=== PATIENT | female | born 1945 | race Caucasian/White ===

== ENCOUNTER 2017-06-13 10:10 | Inpatient (IN) | payer MEDICARE, BC ==
[2017-06-13] MEDS ORDERED: Lorazepam 2 MG/ML VIAL ONE (11:46)
[2017-06-13] MEDS ORDERED: Ondansetron HCl/PF 4 MG/2 ML Vial ONE (11:47)
[2017-06-13] MEDS ORDERED: Meclizine HCl 25 MG TAB ONE (11:47)
[2017-06-13 12:03] LABS: #Eosinphils 0.3 thou/uL (0.0-0.7); #Lymphocytes 1.2 thou/uL (1.20-3.40); #Monocytes 0.7 thou/uL (0.11-0.59); #Neutrophils 7.2 thou/uL (1.40-6.50); %Basophils 0.3 % (0.0-1.0); %Lymphocytes 12.5 % (21.0-51.0); %Monocytes 6.9 % (0.0-10.0); Hematocrit 37.3 % (36.0-47.0); Mean Platelet Volume 8.1 fL (7.4-10.4); Red Blood Cell (RBC) Count 3.96 mill/uL (4.20-5.40); White Blood Cell (WBC) Count 9.3 thou/uL (4.8-10.8)
--- NOTE | 2017-06-13 12:05 | RAD ---
CHEST 1 VIEW: Date: 06/13/17 HISTORY: Syncope. Fall. COMPARISON: Chest radiograph from 2016. FINDINGS: Lungs are clear with no pneumothorax or effusion. Cardiac silhouette and mediastinal contours within normal limits. There appears to be plate and screw fixation in posterior left ribs. Stent graft noted over the upper abdomen. IMPRESSION: 1. No acute intrathoracic abnormality. 2. Likely either small effusion or scarring left lateral costophrenic sulcus. POS: MEDHAT
--- NOTE | 2017-06-13 12:17 | CT ---
CT BRAIN WITHOUT CONTRAST: Date: 06/13/17 HISTORY: Trauma. COMPARISON: None available. FINDINGS: No acute territorial infarct or hemorrhage. No midline shift or mass effect. There is a right forehea d superficial soft tissue contusion. Old lacunar infarcts in basal ganglia. Moderate microvascular is chemic changes. The calvarium is intact. Paranasal sinuses and mastoids are clear. IMPRESSION: 1. Right forehead superficial soft tissue contusion without acute post-traumatic intracranial sequel ae. 2. Moderate microvascular ischemic changes. POS: VIKKI
[2017-06-13 12:18] LABS: PTT 31.1 SEC (22.9-36.1); Prothrombin Time 14.9 SEC (12.0-14.7)
--- NOTE | 2017-06-13 12:19 | CT ---
CT CERVICAL SPINE NONCONTRAST: HISTORY: 71-year-old female status post acute cervical trauma from fall. FINDINGS: There are no jumped or perched facets. There is no evidence of acute fracture. The vertebral body h eights are maintained. There is no prevertebral soft tissue swelling. High-grade COPD changes at zoila g apices. Severe bilateral facet DJD at upper and mid C-spine. Incompletely visualized aneurysm of aortic arch. Pacemaker, left. IMPRESSION: 1. No evidence of acute fracture or acute traumatic subluxation. 2. Emphysema. 3. Severe bilateral degenerative facet disease in the upper and mid levels of the cervical spine. 4. Aneurysm of aortic arch. 5. Left subclavian pacemaker. suzanna [] POS: RUSTAM
[2017-06-13 12:24] LABS: ALT (SGPT) 10 U/L (8-55); AST (SGOT) 18 U/L (5-34); Alkaline Phosphatase 79 U/L (40-150); Anion Gap 12 mmol/L (10-20); BUN (Urea Nitrogen) 27 mg/dL (9.8-20.1); Bilirubin, Total 0.6 mg/dL (0.2-1.2); CK (CPK) 71 U/L (29-168); Calc. Creatinine Clearance 0 mL/min (70-130); Calcium 9.5 mg/dL (7.8-10.44); Carbon Dioxide 23 mmol/L (23-31); Chloride 107 mmol/L (98-107); Estimated GFR-MDRD 25; Globulin 3.3 g/dL (2.4-3.5); Lipase 24 U/L (8-78); Protein, Total 7.2 g/dL (6.0-8.3)
[2017-06-13 12:29] LABS: Troponin I 0.019 ng/mL (< 0.028)
--- NOTE | 2017-06-13 16:17 | HP ---
HISTORY OF PRESENT ILLNESS: Ms. Haile is a 71-year-old woman. She came into this facility after she fell earlier today. She claims that she suddenly felt dizzy and fell. She sustained some right-sided facial hematoma. She was evaluated. She is currently being admitted for management and further evaluation. She denies any previous similar episodes of dizziness. She is known to have any history of hypertension, COPD, atrial fibrillation. She had previous pacema ker placement. She denies diabetes. She does also have any history of chronic kidney disease; howev , we do not know her baseline kidney function. PAST SURGICAL HISTORY: Remarkable for thoracic abdominal aortic aneurysm repair, cholecystectomy, hy sterectomy, bilateral cataract extraction, left mastectomy. ALLERGIES: She does not have any known allergies. SOCIAL HISTORY: She is a former smoker. She denies ETOH abuse. Denies drug abuse. FAMILY HISTORY: Reviewed and is not contributory. MEDICATIONS: Prior to admission she was on Xanax, amlodipine, Eliquis, aspirin 81 mg daily, Lipitor, Keflex, vitamin D3, vitamin B12, Lasix, gabapentin, hydrocodone, levothyroxine, potassium chloride, and Effexor. REVIEW OF SYSTEMS: Constitutional: Denies any fever, denies any weakness. HEENT: No headache, no ocular pain, no sore throat, no rhinorrhea, no earache, no epistaxis. Neck: No neck pain, no neck s tiffness. Cardiovascular: Some shortness of breath associated with chronic obstructive pulmonary di sease, chronic. No chest pain. Pulmonary: No coughing. Gastrointestinal: She did have severe keli rrhea yesterday, no vomiting, no abdominal pain. Endocrinology: No heat or cold intolerance. No po lyuria, polydipsia or polyphagia. Musculoskeletal: Admits to arthralgias. Hematology: No abnormal bleeding. Lymphatic: No palpable lymphadenopathy, no painful lymphadenopathy. Skin: No rash. No itching. Allergies: No hayfever. Psychiatric: Admits to depression. Neurologic: No seizure. G enitourinary: No dysuria, no hematuria. PHYSICAL EXAMINATION: GENERAL: At the current time, she is alert, responsive, cooperative, in no acute distress. VITAL SIGNS: Her latest vital signs show a temperature of 97.9, pulse rate 71, respiratory rate 16, blood pressure 171/90. HEENT: Her head is normocephalic and atraumatic. Both pupils are equal, reactive. Ears and nose ar e normal. She has a small hematoma in the right side of her forehead. Oral mucosa is moist. Pharyn geal area is clear. NECK: Supple. There is no distention of jugular vein. No lymphadenopathy felt. Thyroid gland not palpable. There is no carotid bruit. CHEST: Symmetrical with regular S1, S2. LUNGS: Clear. ABDOMEN: Soft. Bowel sounds are heard. We could not appreciate any organomegaly. There is no foca l area of tenderness. EXTREMITIES: Limbs showed no edema. NEUROLOGIC: She moves all extremities. LABORATORY DATA: Her CBC done today showed WBC of 9.3, hemoglobin of 12.3, hematocrit of 37.3, MCV o f 94.3, platelet of 152. PT is 14.9, PTT 31.1. Chemistry and electrolytes show sodium of 137, potas sium 4.6, chloride 107, CO2 of 23, BUN 27, creatinine 1.98, glucose 93, calcium 9.5, total bilirubin 0.6, AST 18, ALT 10, alkaline phosphatase 79, ammonia 19, CPK 73, total protein 7.2, albumin 3.9, lidia bulin 3.3, lipase is 24. Head CT was reported to show a right forehead superficial soft tissue contu rylie without intracranial sequela and there are moderate microvascular ischemic changes. Cervical sp ine CT was reported to show no evidence of fracture. There is aneurysm of the aortic arch, left subc lavian pacemaker. Chest x-ray was reported to show no acute intrathoracic abnormality. Lungs are cl ear. Cardiac silhouette and mediastinal contour normal. ASSESSMENT AND PLAN: This is a 71-year-old woman with history of hypertension, chronic obs tructive pulmonary disease, atrial fibrillation, status post thoracic aortic aneurysm repair, who was admitted with vertigo. Head CT is negative. We will check MRI and MRA of the brain and neck. By t he meantime, we will initiate treatment of her vertigo. She will be admitted to the stroke floor. F nydia evaluation and management will depend on the course of her hospitalization and her response to therapy.
[2017-06-13] MEDS ORDERED: Lorazepam 2 MG/ML VIAL SLOW IVP PRN (16:32)
[2017-06-13] MEDS ORDERED: Ondansetron HCl/PF 4 MG/2 ML Vial IVP PRN (16:32)
[2017-06-13 16:55] VITALS: BMI 21.4
[2017-06-13] MEDS: Sodium Chloride 0.9% 1,000 ML IV SCH (17:43)
[2017-06-14] MEDS: Sodium Chloride 0.9% 1,000 ML IV SCH ×2 (05:16→20:54)
[2017-06-14] MEDS: Acetaminophen 325 MG TAB PO PRN ×2 (06:06→20:49)
--- NOTE | 2017-06-14 11:30 | PDOC.PN ---
- Subjective Encounter Start Date: 06/14/17 Encounter Start Time: 10:30 Still ginger...worse when upright. - Objective MAR Reviewed: Yes Vital Signs & Weight: Vital Signs (12 hours) Temp Pulse Resp BP BP BP BP 06/14/17 11:24 159/83 H 141/78 H 143/81 H 06/14/17 07:56 98.2 F 71 18 06/14/17 07:35 98.2 F 71 18 138/79 06/14/17 04:29 99.1 F 72 14 175/86 H Pulse Ox 06/14/17 11:24 06/14/17 07:56 06/14/17 07:35 96 06/14/17 04:29 97 Weight Weight 136 lb 9.6 oz I&O: 06/13/17 06/14/17 06/15/17 06:59 06:59 06:59 Intake Total 1076 240 Output Total 0 Balance 1076 240 Result Diagrams: 06/13/17 11:49 06/13/17 11:49 Radiology Reviewed by me: Yes Phys Exam - Physical Examination Constitutional: NAD HEENT: sclera anicteric (+Raccoon eyes....) Neck: no JVD Respiratory: clear to auscultation bilateral Cardiovascular: RRR Gastrointestinal: soft Musculoskeletal: no edema Neurological: moves all 4 limbs Psychiatric: A&O x 3 Dx/Plan (1) Vertigo Code(s): R42 - DIZZINESS AND GIDDINESS Status: Acute Plan: Continue current therapy. Consult neurology when available. Comment: Head CT reviewed. MRI cannot be done, due to pacemaker. (2) COPD (chronic obstructive pulmonary disease) Status: Acute Comment: stable. (3) Atrial fibrillation Code(s): I48.91 - UNSPECIFIED ATRIAL FIBRILLATION Status: Acute (4) S/P placement of cardiac pacemaker Code(s): Z95.0 - PRESENCE OF CARDIAC PACEMAKER Status: Acute (5) HTN (hypertension) Code(s): I10 - ESSENTIAL (PRIMARY) HYPERTENSION Status: Acute Comment: No orthostatic changes... - Plan -: Continue current therapy. -: Hold Eliquis. -: Neuro consult when available.. * .
[2017-06-14] MEDS: Meclizine HCl 25 MG TAB PO PRN (12:35)
[2017-06-14] MEDS: Ferrous Sulfate 325 MG TAB PO SCH (20:50)
[2017-06-14] MEDS ORDERED: Atorvastatin Calcium 10 MG TAB PO SCH (21:00)
[2017-06-15] MEDS ORDERED: Levothyroxine Sodium 100 MCG TAB PO SCH (06:00)
[2017-06-15] MEDS ORDERED: Cyanocobalamin (Vitamin B-12) 1,000 MCG TAB PO SCH (09:00)
[2017-06-15] MEDS ORDERED: Amlodipine 5 MG TAB PO SCH (09:00)
[2017-06-15] MEDS: Ferrous Sulfate 325 MG TAB PO SCH (09:35)
[2017-06-15] MEDS: Meclizine HCl 25 MG TAB PO PRN (09:35)
--- NOTE | 2017-06-15 11:34 | PDOC.PN ---
- Subjective Encounter Start Date: 06/15/17 Encounter Start Time: 11:10 Expresses no complaint. Feels much better. - Objective Vital Signs & Weight: Vital Signs (12 hours) Temp Pulse Resp BP BP Pulse Ox 06/15/17 09:33 70 173/83 H 06/15/17 08:00 98.4 F 70 18 93 L 06/15/17 07:50 98.4 F 70 18 173/83 H 93 L 06/15/17 04:40 98.6 F 73 16 168/80 H 96 06/15/17 00:25 98.3 F 70 16 134/87 93 L Weight Weight 141 lb 8 oz I&O: 06/14/17 06/15/17 06/16/17 06:59 06:59 06:59 Intake Total 1220 Output Total 300 Balance 920 Result Diagrams: 06/13/17 11:49 06/13/17 11:49 Phys Exam - Physical Examination Constitutional: NAD HEENT: moist MMs (Periorbital ecchymosis, severe, bilateral.) Neck: no JVD Respiratory: clear to auscultation bilateral Cardiovascular: RRR Gastrointestinal: soft Musculoskeletal: no edema Neurological: moves all 4 limbs Psychiatric: A&O x 3 Dx/Plan (1) Vertigo Code(s): R42 - DIZZINESS AND GIDDINESS Status: Acute Comment: Head CT reviewed. MRI cannot be done, due to pacemaker. (2) COPD (chronic obstructive pulmonary disease) Status: Acute Comment: stable. (3) Atrial fibrillation Code(s): I48.91 - UNSPECIFIED ATRIAL FIBRILLATION Status: Acute (4) S/P placement of cardiac pacemaker Code(s): Z95.0 - PRESENCE OF CARDIAC PACEMAKER Status: Acute (5) HTN (hypertension) Code(s): I10 - ESSENTIAL (PRIMARY) HYPERTENSION Status: Acute Comment: No orthostatic changes... - Plan -: Stable. -: Home today. -: To see PCP tomorrow. -: Resume Eliquis tomorrow. * .
[2017-06-15] MEDS: Sodium Chloride 0.9% 1,000 ML IV SCH (11:50)
[2017-06-15 12:07] VITALS: BP 172/83; TEMP 99.1
--- NOTE | 2017-06-15 12:38 | DIS ---
DATE OF ADMISSION: 06/13/2017 DATE OF DISCHARGE: 06/15/2017 PRIMARY DIAGNOSTIC: Vertigo. SECONDARY DIAGNOSTIC: Atrial fibrillation, chronic obstructive pulmonary disease, hypertension, hist ory of thoracic aortic aneurysm with discharge diagnostic as above and also severe periorbital ecchym osis. DUST COLLECTOR: None. PROCEDURE: Head CT, chest x-ray, C-spine CT. COURSE OF HOSPITALIZATION: Uncomplicated. Responded well to management. The patient is clinically stable at this time being discharged to home. DISCHARGE MEDICATIONS: Please see discharge medication reconciliation sheet. The patient is to foll ow up with her primary care physician this coming week to resume her Eliquis. For discharge medicati on reconciliation sheet for 2 days. PHYSICAL EXAMINATION: Please refer to the patient's medical record progress note section. DISCHARGE TIME: 32 minutes.
--- NOTE | 2017-07-07 13:53 | EKG ---
Test Reason : Blood Pressure : / mmHG Vent. Rate : 070 BPM Atrial Rate : 258 BPM P-R Int : 000 ms QRS Dur : 154 ms QT Int : 478 ms P-R-T Axes : 093 139 012 degrees QTc Int : 516 ms Electronic ventricular pacemaker Confirmed by KAITY BROUSSARD MD ([id number]), newspaper editor managing ROLDAN OSPINA ([id number]) on 07/07/2017 1:52:27 PM Referred By: Confirmed By:KAITY BROUSSARD MD
== END 2017-06-15 13:23 | disposition home or self-care (01) | DRG 149 ==
LOC: ERS 10:10 → 2SE 13:48 → OBSVTOIN 06-14 14:47
PROVIDERS: ADMIT Hospitalist; ATTEND Hospitalist
DX: R42 Dizziness and giddiness (principal); I71.2 Thoracic aortic aneurysm, without rupture; Z99.81 Dependence on supplemental oxygen; I48.2 Chronic atrial fibrillation; S00.83XA Contusion of other part of head, initial encounter; J44.9 Chronic obstructive pulmonary disease, unspecified; I10 Essential (primary) hypertension; W18.30XA Fall on same level, unspecified, initial encounter; Z79.01 Long term (current) use of anticoagulants; Z90.12 Acquired absence of left breast and nipple; Z87.891 Personal history of nicotine dependence; Z79.82 Long term (current) use of aspirin; Z95.0 Presence of cardiac pacemaker; Y92.012 Bathroom of single-family (private) house as the place of occurrence of the external cause; E03.9 Hypothyroidism, unspecified; F41.9 Anxiety disorder, unspecified
CPT/HCPCS: 36415; 70450; 71010; 72125; 80053; 82140; 82550; 82553; 83690; 83880; 84484; 85025; 85610; 85730; 93005; 96361; 96374; 96375; J2060; J2405

== ENCOUNTER 2017-12-24 12:02 | Outpatient (CLI) | payer MEDICARE, BC | END 2017-12-24 12:03 | disposition home or self-care (01) | LOC: BICCT 12:02 | PROVIDERS: ATTEND Thoracic Surgery (Cardiothoracic Vascular Surgery) | DX: I71.2 Thoracic aortic aneurysm, without rupture (principal); I71.4 Abdominal aortic aneurysm, without rupture; N63.20 Unspecified lump in the left breast, unspecified quadrant; I77.819 Aortic ectasia, unspecified site; I13.10 Hypertensive heart and chronic kidney disease without heart failure, with stage 1 through stage 4 chronic kidney disease, or unspecified chronic kidney disease; N18.9 Chronic kidney disease, unspecified; N17.9 Acute kidney failure, unspecified; D63.1 Anemia in chronic kidney disease; I73.9 Peripheral vascular disease, unspecified; E78.5 Hyperlipidemia, unspecified; E03.9 Hypothyroidism, unspecified; J44.9 Chronic obstructive pulmonary disease, unspecified; Z90.49 Acquired absence of other specified parts of digestive tract | CPT/HCPCS: 71250; 74177; 82565 ==

== ENCOUNTER 2018-12-14 12:35 | Outpatient (CLI) | payer MEDICARE, BC ==
--- NOTE | 2018-12-14 15:07 | CT ---
CT OF THE CHEST, ABDOMEN AND PELVIS WITHOUT IV CONTRAST INDICATION: Abdominal aortic aneurysm and thoracic aortic aneurysm; history of left-sided breast canc er, history of hysterectomy, cholecystectomy, appendectomy and thoracic and abdominal arterial stents. COMPARISON: CT of the thorax without contrast dated July 21, 2018. Comparisons are also made with a CTA of the chest, abdomen and pelvis dated September 02, 2016. FINDINGS: CHEST: Lungs:There is moderate COPD change. Previously seen left lower lobe pulmonary nodule has resolved. R esidual subsegmental atelectasis within the left lower lobe persists. Heart and great vessels:The aneurysmal dilatation involving the distal thoracic aortic arch is stable measuring 4.7 cm in its greatest axial dimension on image 22 of series 2. The descending thoracic aortic aneurysm is stably enlarged measuring 4 cm at the level of the right main pulmonary artery. Th e distal thoracic aortic aneurysm repair appears unchanged from the most recent comparison July 21, 2018. Surgical anastomosis of the celiac, SMA and renal arteries appear similar appearing. Pleural space: No pneumothorax or effusion. Additional findings: Multilead pacemaker overlying the left chest wall is stable. The post procedura l and post therapy changes involving the left breast are stable. ABDOMEN: Liver:The unopacified liver is unremarkable appearing. The gallbladder is surgically absent. Spleen:Normal appearing. Pancreas:Normal appearing. Adrenal Glands:Normal appearing. Kidneys:There is a 2.2 cm cyst involving the anterior aspect of the left mid kidney that is stable. T here is renal cortical thinning bilaterally. Aorta:There is postprocedural change of an aortobiiliac endograft stent. There are internal revision endograft stents seen involving the common iliac limbs bilaterally. The excluded infrarenal abdominal aortic aneurysmal sac is slightly larger than on the comparison CTA dated September 02, 2016 , where previously it measured 4.2 cm now measures 4.7 cm on image 75 of series 2. 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 Additional findings: No free fluid or free air. Pelvis: Bowel:Normal appearing. Bladder:Normal appearing. Reproductive structures:Surgically absent Rectum and perirectal soft tissues:Normal appearing. Additional findings: No free fluid or free air. Osseous structures: There is diffuse osteopenia. There is scattered degenerative and osteoarthritic change present. IMPRESSION: 1. Resolution of previously seen left lower lobe pulmonary nodule likely reflecting a focus of rounde d atelectasis. 2. Worsening aneurysmal dilatation of the excluded infrarenal abdominal aortic aneurysmal sac. Compon ent of endoleak cannot be entirely excluded. Recommend consideration for follow-up CTA of the abdomen and pelvis for additional characterization. 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 3. Aneurysmal dilatation of the distal thoracic aortic arch is stable. Aneurysmal dilatation of the d escending thoracic aorta is stable. The surgical change involving the distal thoracic aortic aneurysm repair appears unchanged. 4. Stable bilateral renal cortical thinning and left renal cysts. 5. COPD change
== END 2018-12-14 12:36 | disposition home or self-care (01) ==
LOC: CT 12:35
PROVIDERS: ATTEND Thoracic Surgery (Cardiothoracic Vascular Surgery)
DX: I71.4 Abdominal aortic aneurysm, without rupture (principal); I70.203 Unspecified atherosclerosis of native arteries of extremities, bilateral legs; I71.2 Thoracic aortic aneurysm, without rupture; I72.3 Aneurysm of iliac artery; N28.89 Other specified disorders of kidney and ureter; N28.1 Cyst of kidney, acquired; J44.9 Chronic obstructive pulmonary disease, unspecified
CPT/HCPCS: 71250; 74177; 82565

== ENCOUNTER 2019-06-20 16:39 | Inpatient (IN) | payer MEDICARE, BC ==
[2019-06-20] MEDS ORDERED: methylPREDNISolone Sod Succ/PF 125 MG/2 ML VIAL ONE (17:31)
[2019-06-20 17:38] LABS: #Basophils 0.1 thou/uL (0.0-0.2); #Eosinphils 0.2 thou/uL (0.0-0.7); #Lymphocytes 1.4 thou/uL (1.20-3.40); #Monocytes 1.1 thou/uL (0.11-0.59); #Neutrophils 12.1 thou/uL (1.40-6.50); %Basophils 0.5 % (0.0-1.0); %Eosinophils 1.6 % (0.0-10.0); %Lymphocytes 9.1 % (21.0-51.0); %Monocytes 7.5 % (0.0-10.0); %Neutrophils 81.3 % (42.0-75.0); Hemoglobin 9.8 g/dL (12.0-16.0); Mean Corpuscular HGB CONC 33.7 g/dL (32.0-36.0); Mean Corpuscular Hemoglobin 32.7 pg (27.0-31.0); Mean Corpuscular Volume 97.2 fL (78.0-98.0); Mean Platelet Volume 8.6 fL (7.4-10.4); Platelet Count 223 thou/uL (130-400); RBC Distribution Width 13.6 % (11.5-14.5); White Blood Cell (WBC) Count 14.8 thou/uL (4.8-10.8)
[2019-06-20 17:40] LABS: Albumin 3.8 g/dL (3.4-4.8); Anion Gap 14 mmol/L (10-20); BUN (Urea Nitrogen) 32 mg/dL (9.8-20.1); Bilirubin, Total 0.5 mg/dL (0.2-1.2); Calc. Creatinine Clearance 0 mL/min (70-130); Calcium 9.9 mg/dL (7.8-10.44); Carbon Dioxide 27 mmol/L (23-31); Chloride 101 mmol/L (98-107); Estimated GFR-MDRD 22; Glucose 112 mg/dL (83-110); Potassium 4.9 mmol/L (3.5-5.1); Protein, Total 7.6 g/dL (6.0-8.3); Sodium 137 mmol/L (136-145)
[2019-06-20 17:41] LABS: ALT (SGPT) 24 U/L (8-55); AST (SGOT) 16 U/L (5-34); Alkaline Phosphatase 76 U/L (40-110); Globulin 3.8 g/dL (2.4-3.5)
[2019-06-20] MEDS ORDERED: cefTRIAXone\\ROCEPHIN 2 GM VIAL ONE (17:48)
[2019-06-20] MEDS ORDERED: Azithromycin 500 MG VIAL ONE (17:49)
--- NOTE | 2019-06-20 17:51 | RAD ---
Chest one view HISTORY: Dyspnea. COMPARISON: 06/13/2017. FINDINGS: Left cardiac margin partially obscured by ill-defined infiltrate within the lingula. Airspa ce opacification also present within each lower lobe, left greater than right. Some component of atelectasis of the left lower lobe. No evidence of pneumothorax. Multi lead left subclavian cardiac electronic device is in place. IMPRESSION: Infiltrates within each lower lobe and the left upper lobe lingula. Consider multifocal p neumonitis. Cause otherwise not evident.
[2019-06-20 18:02] LABS: CKMB 3.9 ng/mL (0-6.6)
[2019-06-20] MEDS ORDERED: Aspirin 81 mg Enteric Coated Tablet ONE (18:30)
[2019-06-20] MEDS ORDERED: Aspirin Chewable 81 MG TAB ONE (18:33)
[2019-06-20] MEDS ORDERED: Polyethylene Glycol 3350 17 GM Packet PO PRN (18:55)
[2019-06-20] MEDS ORDERED: Polyethylene Glycol 3350 17 GM Packet PO SCH (19:00)
[2019-06-20] MEDS ORDERED: Acetaminophen 325 MG TAB PO PRN (19:10)
[2019-06-20] MEDS ORDERED: Acetaminophen 650 MG Suppository PR PRN (19:10)
[2019-06-20 19:15] LABS: Bacteria/HPF None Seen HPF (None Seen); Bilirubin Negative (Negative); Blood, Urine Trace (Negative); Clarity Clear (Clear); Glucose, Urine (Dipstick) 50 mg/dL (Negative); Leukocyte Negative Leu/uL (Negative); Nitrite Negative (Negative); Protein, Urine (Dipstick) 200 mg/dL (Neg-Trace); RBC/HPF 0-3 HPF (0-3); Squamous Epithelial 0-3 HPF (0-3); Urobilinogen Normal mg/dL (Less than 2)
--- NOTE | 2019-06-20 19:53 | PDOC.HHP ---
Hospitalist HPI - History of Present Illness SOB History of Present Illness: Ms. Haile is a pleasant 73 year old woman who presents with worsening shortness of breath that has been significantly worse in the last 2 days. She was seen by her PCP on and was prescribed Augmentin for COPD exacerbation. She has not been on steroids and has been using nebs at home. She is on humidified air at home at night and has been using throughout the day for the last 2 days. Reports a cough, nonproductive, and without hemoptysis. She denies chest pain but feels epigastric discomfort. Has had increasing abdominal bloating for the last week. Reports she suffers from IBS. She had a very small stool this morning and it was firm. Denies any blood in her stools. Has had a normal appetite and denies any n/v. Has had flatus. She does not follow with a [employer]age [employer] Invest[employer]. Per daughters she appears worse this time than she ever has in the past when presenting with COPD exacerbation. ED Course: In the ED she had labs done that showed a WCC of 14.8, Hgb of 9.8, Hematocrit of 29.1, MCV 97.2, Neutrophils of 81.3% Na+ 137, K+ 4.9, BUN 32, Creat 2.15, GFR 22 (renal function at baseline). Glucose 112, LFTS normal. Trop 0.061, CKMB 3.9 CXR done showed infiltrates within each lower lobe, multifocal pneumonitis per report. She was given Solumedrol 125 mg IV, and duonebs x 3. Started on IV Abx (Rocephin and Azithromycin). Also given 1L NS IV. Also given aspirin 324 mg due to the indeterminate troponin. Hospitalist ROS - Review of Systems Constitutional: reports: weakness, malaise Eyes: denies: pain, vision change, conjunctivae inflammation, eyelid inflammation, redness, other ENT: denies: ear pain, ear discharge, nose pain, nose discharge, nose congestion , mouth pain, mouth swelling, throat pain, throat swelling, other Respiratory: reports: cough, shortness of breath Cardiovascular: denies: chest pain, palpitations, orthopnea, paroxysmal noc. dyspnea, edema, light headedness, other Gastrointestinal: reports: abdominal pain, constipation, other (abdominal bloating) Genitourinary: reports: frequency. denies: dysuria, incontinence, hematuria, retention, other Musculoskeletal: denies: neck pain, shoulder pain, arm pain, back pain, hand pain, leg pain, foot pain, other Skin: denies: rash, lesions, júnior, bruising, other Neurological: denies: weakness, numbness, incoordination, change in speech, confusion, seizures, other - Medication Medications: Active Medications Generic Name Dose Route Start Last Admin Trade Name Freq PRN Reason Stop Dose Admin Albuterol/Ipratropium 3 ml 06/20/19 19:00 06/20/19 19:29 Duoneb NEB 3 ml [id number] [facility] Administration Hospitalist History - Past Medical History Cardiac: reports: AFIB, HTN Pulmonary: reports: COPD Endocrine: reports: Hypothyroidism - Past Surgical History Past Surgical History: reports: Appendectomy, Cataract Removal, Hysterectomy, Tubal Ligation, Tonsillectomy Other Surgical History: Aortic stent Cardiac ablation x 3 for afib - Family History Family History: reports: no pertinent history - Social History Smoking Status: Current every day smoker Alcohol: reports: None Drugs: reports: none Living Situation: Alone - Exam General Appearance: ill appearing (Visibly working to breath and short of breath when speaking) Eye: PERRL, anicteric sclera ENT: normocephalic atraumatic, no oropharyngeal lesions, dry oral mucosa Neck: supple, no lymphadenopathy Heart: RRR, normal peripheral pulses Respiratory: CTAB, no rales, tachypneic Respiratory - other findings: increased work of breathing, sats 90% on 2L Gastrointestinal: soft, no guarding Gastrointestinal - other findings: mild discomfort with palpation, slight bloating Extremities: no edema Skin: no lesions, no rashes Neurological: cranial nerve grossly intact, no focal deficits Musculoskeletal: normal tone Psychiatric: A&O x 3 Hospitalist Results - Labs Result Diagrams: 06/20/19 17:00 06/20/19 17:00 Lab results: WBC 14.8 thou/uL (4.8-10.8) H 06/20/19 17:00 Hgb 9.8 g/dL (12.0-16.0) L 06/20/19 17:00 Hct 29.1 % (36.0-47.0) L 06/20/19 17:00 MCV 97.2 fL (78.0-98.0) 06/20/19 17:00 Plt Count 223 thou/uL (130-400) 06/20/19 17:00 Neutrophils % 81.3 % (42.0-75.0) H 06/20/19 17:00 Sodium 137 mmol/L (136-145) 06/20/19 17:00 Potassium 4.9 mmol/L (3.5-5.1) 06/20/19 17:00 Chloride 101 mmol/L (98-107) 06/20/19 17:00 Carbon Dioxide 27 mmol/L (23-31) 06/20/19 17:00 BUN 32 mg/dL (9.8-20.1) H 06/20/19 17:00 Creatinine 2.15 mg/dL (0.6-1.1) H 06/20/19 17:00 Glucose 112 mg/dL (83-110) H 06/20/19 17:00 Lactic Acid 3.0 mmol/L (0.5-2.2) H 06/20/19 18:14 Calcium 9.9 mg/dL (7.8-10.44) 06/20/19 17:00 Total Bilirubin 0.5 mg/dL (0.2-1.2) 06/20/19 17:00 AST 16 U/L (5-34) 06/20/19 17:00 ALT 24 U/L (8-55) 06/20/19 17:00 Alkaline Phosphatase 76 U/L (40-110) 06/20/19 17:00 CK-MB (CK-2) 3.9 ng/mL (0-6.6) 06/20/19 17:00 Troponin I 0.061 ng/mL (< 0.028) H 06/20/19 17:00 B-Natriuretic Peptide 586.4 pg/mL (0-100) H 06/20/19 17:00 Serum Total Protein 7.6 g/dL (6.0-8.3) 06/20/19 17:00 Albumin 3.8 g/dL (3.4-4.8) 06/20/19 17:00 Lipase 11 U/L (8-78) 06/20/19 17:00 Urine Ketones Negative mg/dL (Negative) 06/20/19 Unknown Urine Blood Trace (Negative) A 06/20/19 Unknown Urine Nitrite Negative (Negative) 06/20/19 Unknown Ur Leukocyte Esterase Negative Dalals/uL (Negative) 06/20/19 Unknown Urine RBC 0-3 HPF (0-3) 06/20/19 Unknown Urine WBC 4-6 HPF (0-3) A 06/20/19 Unknown Ur Squamous Epith Cells 0-3 HPF (0-3) 06/20/19 Unknown Urine Bacteria None Seen HPF (None Seen) 06/20/19 Unknown - EKG Interpretation EKG: EKG showed HR of 93, premature supraventricular complexes with ferquent PVCs. - Radiology Interpretation Chest x-ray Status: report reviewed by me Additional Comment: Image also reviewed by Dr. Marrero. Hospitalist H&P A/P - Problem (1) COPD with exacerbation Code(s): J44.1 - CHRONIC OBSTRUCTIVE PULMONARY DISEASE W (ACUTE) EXACERBATION Status: Acute (2) Constipation Code(s): K59.00 - CONSTIPATION, UNSPECIFIED Status: Acute (3) Elevated troponin Code(s): R79.89 - OTHER SPECIFIED ABNORMAL FINDINGS OF BLOOD CHEMISTRY Status : Acute (4) Elevated lactic acid level Code(s): R79.89 - OTHER SPECIFIED ABNORMAL FINDINGS OF BLOOD CHEMISTRY Status : Acute (5) HTN (hypertension) Code(s): I10 - ESSENTIAL (PRIMARY) HYPERTENSION Status: Acute (6) S/P placement of cardiac pacemaker Code(s): Z95.0 - PRESENCE OF CARDIAC PACEMAKER Status: Acute (7) Urinary frequency Code(s): R35.0 - FREQUENCY OF MICTURITION Status: Acute - Plan Plan: ABG ordered as well as an additional duo neb. Continue IV Abx and steroids. CT Chest ordered as well as pulmonary consult. Patient assessed by Dr. Marrero who agrees patient likely requires BiPAP. Patient to be admitted to [facility]. Urinalysis/UCx ordered. Bladder scan, post void, ordered to ensure not retaining. BNP added on to labs. Lasix if BNP elevated, as could be contributing factor. Continue to monitor renal function. Stable at present. KUB ordered. Likely constipated. Miralax if xray ok. Home O2 eval. PT/OT. DVT prophylaxis with mechanical SCDs. GI Prophylaxis with Famotidine 20 mg IV BID. Continue to trend troponins. CODE STATUS: FULL. Surrogate decision maker is her daughter Miriam Ferreira. Addendum - Physician - Physician Attestation Date/Time: 06/21/19 0014 I personally performed or re-performed the physical examination and medical decision making. I have verified all student documentation or findings, including history, physical exam and/or medical decision making. ABG without hypercapnea, patient seen and examined with [employer]RAFTSMAN, increased work of breathing and may well require BIPAP if becomes too difficult to continue, will cotninue frequent nebs and other medcations as ordered in chart in the IMCU for closer monitoring. agree with all aspects of note.
[2019-06-20 19:56] LABS: Actual Bicarbonate (HCO3a) 22.9 mEq/L (22-28); Analyzer IN Cardio ER; Base Excess (BEa) -1.8 mEq/L (-2.0 to +3.0); CO2 Tension 38.6 mmHg (35.0-45.0); Calcium, Ionized 1.17 mmol/L (1.12-1.30); Carboxyhemoglobin (COHb) 0.1 gm% (0.0-3.0); Hemoglobin (Hb) 9.1 g/dL (12.0-16.0); Potassium - ABG Lab 4.37 mmol/L (3.70-5.30); pH, Arterial 7.39 (7.35-7.45)
[2019-06-20 19:57] LABS: Puncture Site RBA
[2019-06-20] MEDS ORDERED: Furosemide 20 MG/2 ML VIAL SLOW IVP SCH (20:00)
--- NOTE | 2019-06-20 20:11 | RAD ---
Abdomen one view HISTORY: Abdomen pain. FINDINGS: Gas and stool over the colon and rectum. Small bowel gas pattern is nonspecific. Aortoiliac stent overlies the mid abdomen and pelvis. Metallic clips over the gallbladder fossa and each groin. Phleboliths project over the pelvis. Orthopedic fixation plate over the left upper quadrant. IMPRESSION: Nonspecific bowel gas pattern. Extensive postoperative changes without radiographic evidence of complication.
--- NOTE | 2019-06-20 20:29 | CT ---
CT chest noncontrast HISTORY: Chest pain. Abnormal chest radiograph. COMPARISON: 12/14/2018. FINDINGS: Ill-defined infiltrate is present within the posterior segment of the right upper lobe. Small amount of left pleural fluid. Ceferino multiple opacity at the left lung base has the appearance o f atelectasis. No evidence of pneumothorax. Lungs are otherwise hyperinflated. Lack of contrast limits evaluation of the soft tissues. Aortic calcification and enlargement is simil ar in appearance to the previous exam. Skin thickening and fat stranding involving the left breast have increased since the prior study. IMPRESSION: Right upper lobe infiltrate. Consider pneumonitis. Parenchymal opacity at the left lung base has the appearance of atelectasis and is associated with a small amount of left pleural fluid. Worsening skin thickening and fat stranding of the left breast. Please correlate with clinical histor y and findings. This may be related to inflammation or therapy.
[2019-06-20] MEDS ORDERED: ALPRAZolam 0.25 MG TAB ONE (20:51)
[2019-06-20 21:19] LABS: Lactic Acid 2.7 mmol/L (0.5-2.2)
[2019-06-20 21:23] LABS: CKMB 3.4 ng/mL (0-6.6)
[2019-06-20] MEDS ORDERED: Furosemide 20 MG/2 ML VIAL ONE (23:39)
[2019-06-20] MEDS ORDERED: methylPREDNISolone Sod Succ 40 MG VIAL ONE (23:39)
[2019-06-20] MEDS: methylPREDNISolone Sod Succ 40 MG VIAL IVP SCH (23:52)
[2019-06-20] MEDS: Sodium Chloride 0.9% 1,000 ML IV SCH (23:52)
[2019-06-21 05:52] LABS: #Lymphocytes 0.4 thou/uL (1.20-3.40); #Monocytes 0.1 thou/uL (0.11-0.59); #Neutrophils 14.3 thou/uL (1.40-6.50); %Basophils 0.1 % (0.0-1.0); %Eosinophils 0.2 % (0.0-10.0); %Lymphocytes 2.7 % (21.0-51.0); %Monocytes 0.9 % (0.0-10.0); Hemoglobin 8.8 g/dL (12.0-16.0); Mean Corpuscular HGB CONC 33.3 g/dL (32.0-36.0); Mean Corpuscular Hemoglobin 32.4 pg (27.0-31.0); Mean Corpuscular Volume 97.4 fL (78.0-98.0); Mean Platelet Volume 8.8 fL (7.4-10.4); Platelet Count 201 thou/uL (130-400); RBC Distribution Width 13.7 % (11.5-14.5); Red Blood Cell (RBC) Count 2.72 mill/uL (4.20-5.40); White Blood Cell (WBC) Count 14.9 thou/uL (4.8-10.8)
[2019-06-21 06:05] LABS: Anion Gap 17 mmol/L (10-20); BUN (Urea Nitrogen) 33 mg/dL (9.8-20.1); Calc. Creatinine Clearance 0 mL/min (70-130); Calcium 8.9 mg/dL (7.8-10.44); Carbon Dioxide 22 mmol/L (23-31); Chloride 103 mmol/L (98-107); Estimated GFR-MDRD 21; Glucose 307 mg/dL (83-110); Potassium 4.6 mmol/L (3.5-5.1); Sodium 137 mmol/L (136-145)
[2019-06-21] MEDS ORDERED: methylPREDNISolone Sod Succ 40 MG VIAL ONE (06:58)
[2019-06-21] MEDS ORDERED: Famotidine/PF 20 mg/2ml Vial ONE (09:48)
[2019-06-21] MEDS ORDERED: Amlodipine 5 MG TAB PO SCH (10:00)
[2019-06-21] MEDS: Famotidine/PF 20 mg/2ml Vial SLOW IVP SCH (11:10)
--- NOTE | 2019-06-21 11:28 | PDOC.HOSPP ---
- Subjective Encounter Date: 06/21/19 Encounter Time: 11:26 Subjective: Doing a little better. Breathing a little better. She does report a hx of left breast cancer. She had surgery in 10/28 with removal of the tumor and several LN's removed. She has had left breast edema since that time. It does not bother her. She was told it was fluid and benign , but she could follow up with Oncology if she wanted to. She has not done that. Quit smoking on . - Objective Vital Signs & Weight: Vital Signs (12 hours) Pulse Resp 06/21/19 10:10 96 19 06/21/19 07:33 98 22 H Result Diagrams: 06/21/19 05:18 06/21/19 05:18 Hospitalist ROS - Medication Medications: Active Medications Generic Name Dose Route Start Last Admin Trade Name Freq PRN Reason Stop Dose Admin Albuterol/Ipratropium 3 ml 06/20/19 19:00 06/21/19 10:10 Duoneb NEB 3 ml [id number] GORDON Administration Famotidine 20 mg 06/21/19 09:00 06/21/19 11:10 Pepcid SLOW IVP 20 mg DAILY GORDON Administration Sodium Chloride 1,000 mls @ 75 mls/hr 06/20/19 19:15 06/20/19 23:52 Normal Saline 0.9% IV 1,000 mls .[id number] GORDON Administration Methylprednisolone Sodium Succinate 40 mg 06/20/19 23:59 06/20/19 23:52 Solu-Medrol IVP 40 mg Q6HR GORDON Administration - Exam General Appearance: NAD, awake alert Heart: RRR, no murmur, no gallops, no rubs, normal peripheral pulses Respiratory: no wheezes, no ronchi, normal chest expansion, no tachypnea, normal percussion Respiratory - other findings: Mild RUL rales. Mild tachypnea. Diminished. Gastrointestinal: soft, non-tender, non-distended, normal bowel sounds, no palpable masses, no hepatomegaly, no splenomegaly, no bruit Extremities: no cyanosis, no clubbing, no edema Skin - other findings: Left breast lymphedema. No erythema or signif TTP. No mass. Musculoskeletal: normal tone, normal strength, no muscle wasting Psychiatric: normal affect, normal behavior, A&O x 3 Hosp A/P (1) Community acquired bacterial pneumonia Code(s): J15.9 - UNSPECIFIED BACTERIAL PNEUMONIA Status: Acute (2) Acute and chronic respiratory failure with hypoxia Code(s): J96.21 - ACUTE AND CHRONIC RESPIRATORY FAILURE WITH HYPOXIA Status: Acute (3) COPD exacerbation Code(s): J44.1 - CHRONIC OBSTRUCTIVE PULMONARY DISEASE W (ACUTE) EXACERBATION Status: Acute (4) Hx of breast cancer Code(s): Z85.3 - PERSONAL HISTORY OF MALIGNANT NEOPLASM OF BREAST Status: Chronic (5) Lymphedema of breast Code(s): I89.0 - LYMPHEDEMA, NOT ELSEWHERE CLASSIFIED Status: Chronic (6) Constipation Code(s): K59.00 - CONSTIPATION, UNSPECIFIED Status: Acute (7) Urinary frequency Code(s): R35.0 - FREQUENCY OF MICTURITION Status: Acute (8) Atrial fibrillation Code(s): I48.91 - UNSPECIFIED ATRIAL FIBRILLATION Status: Chronic (9) Hypertension Code(s): I10 - ESSENTIAL (PRIMARY) HYPERTENSION Status: Chronic Qualifiers: Hypertension type: essential hypertension Qualified Code(s): I10 - Essential (primary) hypertension (10) S/P placement of cardiac pacemaker Code(s): Z95.0 - PRESENCE OF CARDIAC PACEMAKER Status: Chronic (11) Myocardial infarct Code(s): I21.9 - ACUTE MYOCARDIAL INFARCTION, UNSPECIFIED Status: Acute Qualifiers: Myocardial infarction type: type 2 Qualified Code(s): I21.A1 - Myocardial infarction type 2 Plan: secondary to acute hypoxic resp failure. (12) CKD (chronic kidney disease), stage IV Code(s): N18.4 - CHRONIC KIDNEY DISEASE, STAGE 4 (SEVERE) Status: Acute (13) Anemia in chronic kidney disease (CKD) Code(s): N18.9 - CHRONIC KIDNEY DISEASE, UNSPECIFIED; D63.1 - ANEMIA IN CHRONIC KIDNEY DISEASE Status: Acute - Plan Continue IV Levaquin and Cefepime for pneumonia. Steroids, nebs for COPD exac. Supplemental oxygen for resp failure. Suspect the Left breast is only chronic lymphedema. I did recommend to her that she follow up with oncology as OP. Follow up on urine culture. PRN for constipation. Type II NSTEMI secondary to resp failure and CKD.
[2019-06-21] MEDS ORDERED: Amlodipine 5 MG TAB ONE (12:10)
[2019-06-21] MEDS: methylPREDNISolone Sod Succ 40 MG VIAL IVP SCH ×4 (12:53→23:50)
[2019-06-21] MEDS: Cefepime 1 GM in Sodium Chloride 0.9% 100 ML IVPB SCH ×2 (12:53→23:50)
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
[2019-06-21] MEDS: Sodium Chloride 0.9% 1,000 ML IV SCH (14:52)
[2019-06-21 16:43] VITALS: BMI 25.4
[2019-06-21 18:28] LABS: Actual Bicarbonate (HCO3a) 23.8 mEq/L (22-28); Base Excess (BEa) 0.4 mEq/L (-2.0 to +3.0); CO2 Tension 33.6 mmHg (35.0-45.0); Calcium, Ionized 1.12 mmol/L (1.12-1.30); Carboxyhemoglobin (COHb) 0.8 gm% (0.0-3.0); Hemoglobin (Hb) 9.1 g/dL (12.0-16.0); O2 Tension (PaO2) 75.3 mmHg (> 70.0); Potassium - ABG Lab 3.91 mmol/L (3.70-5.30); pH, Arterial 7.47 (7.35-7.45)
[2019-06-21 18:33] LABS: Puncture Site L RADIAL
[2019-06-21] MEDS: ALPRAZolam 1 MG TAB PO SCH (21:52)
[2019-06-21] MEDS ORDERED: traZODone HCl 50 MG TAB PO SCH (22:30)
[2019-06-22] MEDS: methylPREDNISolone Sod Succ 40 MG VIAL IVP SCH ×2 (04:39→20:34)
[2019-06-22] MEDS: Levothyroxine Sodium 100 MCG TAB PO SCH (04:39)
[2019-06-22] MEDS: Sodium Chloride 0.9% 1,000 ML IV SCH ×2 (04:42→20:32)
[2019-06-22] MEDS: ALPRAZolam 1 MG TAB PO SCH ×2 (08:03→20:34)
[2019-06-22] MEDS: Famotidine/PF 20 mg/2ml Vial SLOW IVP SCH (08:03)
[2019-06-22] MEDS: Amlodipine 5 MG TAB PO SCH (08:03)
--- NOTE | 2019-06-22 09:19 | PRG ---
DATE OF SERVICE: 06/22/2019 SUBJECTIVE: This morning, she is better, less short of breath, less encephalopathic. OBJECTIVE: VITAL SIGNS: Temperature 97, pulse 95, respiratory rate 18, saturations 94% on room air, blood pressure 183/83. CHEST: Rhonchi and crackles. CARDIAC: Normal S1 and S2. No gallops. ABDOMEN: No mass. ASSESSMENT AND PLAN: Respiratory failure, bilateral bronchopneumonia, encephalopathy. Continue antibiotics, steroids, neb treatment, PT, supportive care. We will follow. Job ID: [id number]
[2019-06-22] MEDS: HYDROcodone/Acetaminophen 10/325 mg Tablet PO PRN ×4 (09:39→22:16)
[2019-06-22] MEDS: Cefepime 1 GM in Sodium Chloride 0.9% 100 ML IVPB SCH (11:21)
--- NOTE | 2019-06-22 14:38 | PDOC.HOSPP ---
- Subjective Subjective: Doing a little better. Still very SOB with even getting up to the bedside commode. Daughter, who is an RN, is here as well. She says her mother has not been ambulatory since her aortic aneurysm repair. Large surgery with thoracotomy. Has not actively participated in PT since the surgery. Says her abdomen has become larger in girth and she doesn't know why. - Objective Vital Signs & Weight: Vital Signs (12 hours) Temp Pulse Resp BP Pulse Ox 06/22/19 14:07 109 H 20 93 L 06/22/19 11:11 97.8 F 83 19 136/60 94 L 06/22/19 10:46 87 16 97 06/22/19 08:03 99 06/22/19 08:00 95 06/22/19 07:00 97.3 F L 95 18 183/83 H 94 L 06/22/19 03:47 97.5 F L 99 16 143/69 H 96 Weight Weight 162 lb 3 oz I&O: 06/21/19 06/22/19 06/23/19 06:59 06:59 06:59 Intake Total 1225 Output Total 600 Balance 625 Result Diagrams: 06/21/19 05:18 06/21/19 05:18 Hospitalist ROS - Medication Medications: Active Medications Generic Name Dose Route Start Last Admin Trade Name Freq PRN Reason Stop Dose Admin Hydrocodone Bitart/Acetaminophen 1 tab 06/22/19 09:15 06/22/19 13:54 [place] 10/325 PO 1 tab Q4H PRN Administration Moderate to Severe Pain (6-10) Albuterol/Ipratropium 3 ml 06/20/19 19:00 06/22/19 14:07 Duoneb NEB 3 ml [id number] GORDON Administration Alprazolam 1 mg 06/21/19 21:00 06/22/19 08:03 Xanax PO 1 mg BID GORDON Administration Amlodipine Besylate 2.5 mg 06/22/19 09:00 06/22/19 08:03 Norvasc PO 2.5 mg DAILY GORDON Administration Famotidine 20 mg 06/21/19 09:00 06/22/19 08:03 Pepcid SLOW IVP 20 mg DAILY GORDON Administration Sodium Chloride 1,000 mls @ 75 mls/hr 06/20/19 19:15 06/22/19 04:42 Normal Saline 0.9% IV 1,000 mls .[id number] GORDON Administration Cefepime HCl 1 gm/ Sodium 100 mls @ 200 mls/hr 06/21/19 12:00 06/22/19 11:21 Chloride IVPB 100 mls 1200,2359 GORDON Administration Levofloxacin 750 mg/ Device 150 mls @ 100 mls/hr 06/21/19 12:00 06/22/19 11: 21 IVPB 150 mls 1200 GORDON Administration Levothyroxine Sodium 100 mcg 06/22/19 06:00 06/22/19 04:39 Synthroid PO 100 mcg 0600 GORDON Administration Venlafaxine HCl 75 mg 06/21/19 21:00 06/22/19 08:04 Effexor PO 75 mg BID GORDON Administration - Exam General Appearance: NAD, awake alert Heart: RRR, no murmur, no gallops, no rubs, normal peripheral pulses Respiratory: no wheezes, no ronchi, normal chest expansion, rales (bases. L>R) , tachypneic Gastrointestinal: soft, non-tender, non-distended, normal bowel sounds, no palpable masses, no hepatomegaly, no splenomegaly, no bruit Extremities: no cyanosis, no clubbing, no edema Skin: normal turgor Musculoskeletal: generalized weakness Psychiatric: normal affect, normal behavior, A&O x 3 Hosp A/P (1) Community acquired bacterial pneumonia Code(s): J15.9 - UNSPECIFIED BACTERIAL PNEUMONIA Status: Acute (2) Acute and chronic respiratory failure with hypoxia Code(s): J96.21 - ACUTE AND CHRONIC RESPIRATORY FAILURE WITH HYPOXIA Status: Acute (3) COPD exacerbation Code(s): J44.1 - CHRONIC OBSTRUCTIVE PULMONARY DISEASE W (ACUTE) EXACERBATION Status: Acute (4) Hx of breast cancer Code(s): Z85.3 - PERSONAL HISTORY OF MALIGNANT NEOPLASM OF BREAST Status: Chronic (5) Lymphedema of breast Code(s): I89.0 - LYMPHEDEMA, NOT ELSEWHERE CLASSIFIED Status: Chronic (6) Constipation Code(s): K59.00 - CONSTIPATION, UNSPECIFIED Status: Acute (7) Urinary frequency Code(s): R35.0 - FREQUENCY OF MICTURITION Status: Acute (8) Atrial fibrillation Code(s): I48.91 - UNSPECIFIED ATRIAL FIBRILLATION Status: Chronic (9) Hypertension Code(s): I10 - ESSENTIAL (PRIMARY) HYPERTENSION Status: Chronic Qualifiers: Hypertension type: essential hypertension Qualified Code(s): I10 - Essential (primary) hypertension (10) S/P placement of cardiac pacemaker Code(s): Z95.0 - PRESENCE OF CARDIAC PACEMAKER Status: Chronic (11) Myocardial infarct Code(s): I21.9 - ACUTE MYOCARDIAL INFARCTION, UNSPECIFIED Status: Acute Qualifiers: Myocardial infarction type: type 2 Qualified Code(s): I21.A1 - Myocardial infarction type 2 (12) CKD (chronic kidney disease), stage IV Code(s): N18.4 - CHRONIC KIDNEY DISEASE, STAGE 4 (SEVERE) Status: Acute (13) Anemia in chronic kidney disease (CKD) Code(s): N18.9 - CHRONIC KIDNEY DISEASE, UNSPECIFIED; D63.1 - ANEMIA IN CHRONIC KIDNEY DISEASE Status: Acute (14) Hyperglycemia Code(s): R73.9 - HYPERGLYCEMIA, UNSPECIFIED Status: Acute - Plan Continue IV Levaquin and Cefepime for RUL Community acquired pneumonia. Steroids, nebs for COPD exac. Supplemental oxygen for resp failure. Hyperglycemia related to steroids. FSBG ACHS and SSI. Suspect the Left breast is only chronic lymphedema. I did recommend to her that she follow up with oncology as OP. Follow up on urine culture. PRN for constipation. Type II NSTEMI secondary to resp failure and CKD. Remains in paced rhythm. Discussed the possibility of rehab at discharge. She will give that some thought.
[2019-06-22] MEDS ORDERED: HumaLOG 300 UNITS/3 ML VIAL SC PRN (14:40)
[2019-06-22] MEDS ORDERED: Dextrose 50% Abboject 50 ML SYRINGE SLOW IVP PRN (14:40)
[2019-06-22] MEDS ORDERED: Dextrose 5% in Water 1,000 ML IV PRN (14:40)
[2019-06-22] MEDS: traZODone HCl 50 MG TAB PO SCH (20:34)
[2019-06-23] MEDS: Levothyroxine Sodium 100 MCG TAB PO SCH (05:06)
[2019-06-23] MEDS: HYDROcodone/Acetaminophen 10/325 mg Tablet PO PRN (05:07)
[2019-06-23 05:31] LABS: #Lymphocytes 0.7 thou/uL (1.20-3.40); #Monocytes 0.6 thou/uL (0.11-0.59); #Neutrophils 17.9 thou/uL (1.40-6.50); %Eosinophils 0.2 % (0.0-10.0); %Lymphocytes 3.5 % (21.0-51.0); %Monocytes 3.3 % (0.0-10.0); Hemoglobin 8.6 g/dL (12.0-16.0); Mean Corpuscular HGB CONC 31.9 g/dL (32.0-36.0); Mean Corpuscular Hemoglobin 31.9 pg (27.0-31.0); Mean Platelet Volume 8.8 fL (7.4-10.4); Platelet Count 249 thou/uL (130-400); RBC Distribution Width 13.7 % (11.5-14.5); Red Blood Cell (RBC) Count 2.68 mill/uL (4.20-5.40); White Blood Cell (WBC) Count 19.3 thou/uL (4.8-10.8)
[2019-06-23 05:48] LABS: Anion Gap 13 mmol/L (10-20); BUN (Urea Nitrogen) 55 mg/dL (9.8-20.1); Calc. Creatinine Clearance 22 mL/min (70-130); Carbon Dioxide 22 mmol/L (23-31); Chloride 110 mmol/L (98-107); Estimated GFR-MDRD 18; Glucose 204 mg/dL (83-110); Potassium 5.1 mmol/L (3.5-5.1); Sodium 140 mmol/L (136-145)
[2019-06-23] MEDS: ALPRAZolam 1 MG TAB PO SCH ×2 (08:48→20:39)
[2019-06-23] MEDS: Amlodipine 5 MG TAB PO SCH (08:48)
[2019-06-23] MEDS: Famotidine/PF 20 mg/2ml Vial SLOW IVP SCH (08:49)
[2019-06-23] MEDS: methylPREDNISolone Sod Succ 40 MG VIAL IVP SCH ×2 (08:49→20:39)
[2019-06-23] MEDS: Sodium Chloride 0.9% 1,000 ML IV SCH ×3 (08:57→15:27)
[2019-06-23] MEDS: Cefepime 1 GM in Sodium Chloride 0.9% 100 ML IVPB SCH ×3 (12:01→23:41)
--- NOTE | 2019-06-23 14:57 | PDOC.HOSPP ---
- Subjective Encounter Date: 06/23/19 Encounter Time: 14:45 Subjective: f/u for RUL CAP on Cefepime/Levaquin. Feels better overall but still weak. Appetite improved. - Objective Vital Signs & Weight: Vital Signs (12 hours) Temp Pulse Resp BP BP Pulse Ox 06/23/19 14:06 86 20 06/23/19 12:25 97.5 F L 87 18 127/76 96 06/23/19 10:43 75 20 06/23/19 08:48 94 97 06/23/19 08:24 96.4 F L 94 12 119/78 97 06/23/19 07:34 96 06/23/19 07:32 92 20 96 06/23/19 03:20 97.7 F 86 23 H 134/60 95 Weight Weight 162 lb 3 oz I&O: 06/22/19 06/23/19 06/24/19 06:59 06:59 06:59 Intake Total 1225 1225 Output Total 600 Balance 625 1225 Result Diagrams: 06/23/19 04:57 06/23/19 04:57 Additional Labs: Accuchecks 06/23/19 06/23/19 06/22/19 11:05 05:54 21:58 POC Glucose 125 H 195 H 187 H 06/22/19 17:39 POC Glucose 175 H Microbiology 06/20/19 Unknown Urine voided Urine Culture - Final NO GROWTH AT 36 HOURS 06/20/19 20:31 Venous blood - Left Arm Blood Culture - Preliminary NO GROWTH AT 48 HOURS 06/20/19 20:26 Venous blood - Right Hand Blood Culture - Preliminary NO GROWTH AT 48 HOURS Laboratory Tests 11/05/14 06/11/15 06/13/17 21:50 02:20 11:49 WBC Hgb Creatinine B-Natriuretic Peptide 167.6 H 111.9 H 154.1 H TSH 3rd Generation 06/20/19 06/20/19 06/20/19 17:00 17:00 17:00 WBC 14.8 H Hgb 9.8 L Creatinine 2.15 H B-Natriuretic Peptide 586.4 H TSH 3rd Generation 06/20/19 06/21/19 06/21/19 17:00 05:18 05:18 WBC 14.9 H Hgb 8.8 L Creatinine 2.30 H B-Natriuretic Peptide TSH 3rd Generation 1.3733 EKG Reviewed by me: Yes (Tele - V-pacing) Hospitalist ROS - Medication Medications: Active Medications Generic Name Dose Route Start Last Admin Trade Name Freq PRN Reason Stop Dose Admin Hydrocodone Bitart/Acetaminophen 1 tab 06/22/19 09:15 06/23/19 05:07 [place] 10/325 PO 1 tab Q4H PRN Administration Moderate to Severe Pain (6-10) Albuterol/Ipratropium 3 ml 06/20/19 19:00 06/23/19 14:06 Duoneb NEB 3 ml [id number] GORDON Administration Alprazolam 1 mg 06/21/19 21:00 06/23/19 08:48 Xanax PO 1 mg BID GORDON Administration Amlodipine Besylate 2.5 mg 06/22/19 09:00 06/23/19 08:48 Norvasc PO 2.5 mg DAILY GORDON Administration Famotidine 20 mg 06/21/19 09:00 06/23/19 08:49 Pepcid SLOW IVP 20 mg DAILY GORDON Administration Sodium Chloride 1,000 mls @ 75 mls/hr 06/20/19 19:15 06/23/19 12:02 Normal Saline 0.9% IV 1,000 mls .[id number] GORDON Administration Cefepime HCl 1 gm/ Sodium 100 mls @ 200 mls/hr 06/21/19 12:00 06/23/19 12:01 Chloride IVPB 100 mls 1200,2359 GORDON Administration Levofloxacin 750 mg/ Device 150 mls @ 100 mls/hr 06/21/19 12:00 06/23/19 12: 02 IVPB 150 mls 1200 GORDON Administration Levothyroxine Sodium 100 mcg 06/22/19 06:00 06/23/19 05:06 Synthroid PO 100 mcg 0600 GORDON Administration Methylprednisolone Sodium Succinate 40 mg 06/22/19 21:00 06/23/19 08:49 Solu-Medrol IVP 40 mg BID GORDON Administration Trazodone HCl 50 mg 06/22/19 21:00 06/22/19 20:34 Desyrel PO 50 mg HS GORDON Administration Venlafaxine HCl 75 mg 06/21/19 21:00 06/23/19 08:48 Effexor PO 75 mg BID GORDON Administration - Exam General Appearance: NAD, awake alert Eye: PERRL, anicteric sclera ENT: normocephalic atraumatic, no oropharyngeal lesions Neck: supple, symmetric, no JVD, no thyromegaly Heart: no murmur, no gallops, no rubs, normal peripheral pulses, irregular Respiratory: no wheezes, no rales, normal chest expansion Respiratory - other findings: few rhonchi in RUL Gastrointestinal: soft, non-tender, non-distended, normal bowel sounds, no palpable masses Extremities: no cyanosis, no clubbing, no edema Skin: normal turgor, no lesions Neurological: cranial nerve grossly intact, no new deficit Musculoskeletal: normal tone, generalized weakness Psychiatric: normal affect, A&O x 3 Hosp A/P (1) Acute and chronic respiratory failure with hypoxia Code(s): J96.21 - ACUTE AND CHRONIC RESPIRATORY FAILURE WITH HYPOXIA Status: Acute Plan: Continue O2 supplementation, see mgmt below (2) Community acquired bacterial pneumonia Code(s): J15.9 - UNSPECIFIED BACTERIAL PNEUMONIA Status: Acute Plan: Suspected RUL involvement, continue Levaquin/Cefepime, Duonebs, Solumedrol (3) COPD exacerbation Code(s): J44.1 - CHRONIC OBSTRUCTIVE PULMONARY DISEASE W (ACUTE) EXACERBATION Status: Acute Plan: Continue Solumedrol, Duonebs, IV abx, O2 supplementation (4) CKD (chronic kidney disease), stage IV Code(s): N18.4 - CHRONIC KIDNEY DISEASE, STAGE 4 (SEVERE) Status: Chronic Plan: Avoid nephrotoxic meds and limit contrast exposure (5) Atrial fibrillation Code(s): I48.91 - UNSPECIFIED ATRIAL FIBRILLATION Status: Chronic Plan: Rate stable, V-pacing, - Plan continue antibiotics, PT/OT, social services technician, respiratory therapy Stable currently Continue pulmonary supportive measures Decrease IVF's 50ml/h continue Solumedrol continue Levaquin/Cefepime OOB with PT AM lab: BMP, CBC
[2019-06-23] MEDS: traZODone HCl 50 MG TAB PO SCH (20:39)
[2019-06-23] MEDS: HYDROcodone/Acetaminophen 10/325 mg Tablet PO SCH (20:39)
[2019-06-23] MEDS: Aspirin 81 mg Enteric Coated Tablet PO SCH (20:39)
[2019-06-24 05:25] LABS: Band 4 % (5-11); Hemoglobin 8.9 g/dL (12.0-16.0); Lymphocytes 1 % (21-51); MDiff Complete? YES; Mean Corpuscular HGB CONC 31.9 g/dL (32.0-36.0); Mean Corpuscular Hemoglobin 31.5 pg (27.0-31.0); Mean Corpuscular Volume 98.8 fL (78.0-98.0); Mean Platelet Volume 9.1 fL (7.4-10.4); Monocytes 3 % (0-10); Neutrophil 92 % (42-75); Platelet Count 222 thou/uL (130-400); RBC Distribution Width 13.7 % (11.5-14.5); Red Blood Cell (RBC) Count 2.81 mill/uL (4.20-5.40); White Blood Cell (WBC) Count 14.8 thou/uL (4.8-10.8)
[2019-06-24 05:33] LABS: Anion Gap 15 mmol/L (10-20); BUN (Urea Nitrogen) 61 mg/dL (9.8-20.1); Calc. Creatinine Clearance 22 mL/min (70-130); Calcium 7.8 mg/dL (7.8-10.44); Carbon Dioxide 17 mmol/L (23-31); Chloride 111 mmol/L (98-107); Estimated GFR-MDRD 18; Glucose 181 mg/dL (83-110); Sodium 138 mmol/L (136-145)
[2019-06-24] MEDS: Levothyroxine Sodium 100 MCG TAB PO SCH (05:46)
[2019-06-24] MEDS: methylPREDNISolone Sod Succ 40 MG VIAL IVP SCH (09:54)
[2019-06-24] MEDS: Multivitamin W/ Minerals 1 TAB PO SCH (09:54)
[2019-06-24] MEDS: ALPRAZolam 1 MG TAB PO SCH ×2 (09:55→21:58)
[2019-06-24] MEDS: Amlodipine 5 MG TAB PO SCH (09:56)
[2019-06-24] MEDS: HYDROcodone/Acetaminophen 10/325 mg Tablet PO SCH ×2 (09:57→21:58)
[2019-06-24] MEDS: Famotidine/PF 20 mg/2ml Vial SLOW IVP SCH (09:57)
[2019-06-24] MEDS: Cyanocobalamin (Vitamin B-12) 1,000 MCG TAB PO SCH (10:04)
[2019-06-24] MEDS: Sodium Chloride 0.9% 1,000 ML IV SCH (10:10)
[2019-06-24] MEDS ORDERED: Chloraseptic Spray 180 ml Bottle PO PRN (11:37)
--- NOTE | 2019-06-24 11:40 | PDOC.HOSPP ---
- Subjective Encounter Date: 06/24/19 Encounter Time: 11:30 Subjective: f/u for COPD exacerbation with suspected RUL PNA on Cefepime/Levaquin. Feels weak, tired after poor sleep overnight. States some sore throat this am and not interested in eating today. - Objective Vital Signs & Weight: Vital Signs (12 hours) Temp Pulse Resp BP Pulse Ox 06/24/19 10:39 87 16 95 06/24/19 07:52 95 06/24/19 07:50 80 16 95 06/24/19 07:43 98.0 F 80 20 167/93 H 95 06/24/19 04:00 97.3 F L 92 16 122/59 L 93 L Weight Admit Weight 162 lb 3 oz Weight 162 lb 3 oz I&O: 06/23/19 06/24/19 06/25/19 06:59 06:59 06:59 Intake Total 1225 1440 Output Total 460 Balance 1225 980 Result Diagrams: 06/24/19 04:50 06/24/19 04:50 Additional Labs: Accuchecks 06/24/19 06/24/19 06/23/19 10:45 07:56 20:29 POC Glucose 153 H 151 H 147 H 06/23/19 16:58 POC Glucose 127 H Microbiology 06/20/19 Unknown Urine voided Urine Culture - Final NO GROWTH AT 36 HOURS 06/20/19 20:31 Venous blood - Left Arm Blood Culture - Preliminary NO GROWTH AT 48 HOURS 06/20/19 20:26 Venous blood - Right Hand Blood Culture - Preliminary NO GROWTH AT 48 HOURS Laboratory Tests 11/05/14 06/11/15 06/13/17 21:50 02:20 11:49 WBC Hgb Creatinine B-Natriuretic Peptide 167.6 H 111.9 H 154.1 H TSH 3rd Generation 06/20/19 06/20/19 06/20/19 17:00 17:00 17:00 WBC 14.8 H Hgb 9.8 L Creatinine 2.15 H B-Natriuretic Peptide 586.4 H TSH 3rd Generation 06/20/19 06/21/19 06/21/19 17:00 05:18 05:18 WBC 14.9 H Hgb 8.8 L Creatinine 2.30 H B-Natriuretic Peptide TSH 3rd Generation 1.3733 EKG Reviewed by me: Yes (Tele - V-pacing) Hospitalist ROS - Medication Medications: Active Medications Generic Name Dose Route Start Last Admin Trade Name Freq PRN Reason Stop Dose Admin Hydrocodone Bitart/Acetaminophen 1 tab 06/22/19 09:15 06/23/19 05:07 [place] 10/325 PO 1 tab Q4H PRN Administration Moderate to Severe Pain (6-10) Hydrocodone Bitart/Acetaminophen 1 tab 06/23/19 21:00 06/24/19 09:57 [place] 10/325 PO 1 tab BID GORDON Administration Albuterol/Ipratropium 3 ml 06/20/19 19:00 06/24/19 10:39 Duoneb NEB 3 ml [id number] GORDON Administration Alprazolam 1 mg 06/21/19 21:00 06/24/19 09:55 Xanax PO 1 mg BID GORDON Administration Amlodipine Besylate 2.5 mg 06/22/19 09:00 06/24/19 09:56 Norvasc PO 2.5 mg DAILY GORDON Administration Aspirin 81 mg 06/23/19 21:00 06/23/19 20:39 Ecotrin PO 81 mg HS GORDON Administration Cholecalciferol 1,000 units 06/24/19 09:00 06/24/19 09:57 Vitamin D3 PO 1,000 units DAILY GORDON Administration Cyanocobalamin 5,000 mcg 06/24/19 09:00 06/24/19 10:04 Vitamin B-12 PO Not Given DAILY GORDON Famotidine 20 mg 06/21/19 09:00 06/24/19 09:57 Pepcid SLOW IVP 20 mg DAILY GORDON Administration Cefepime HCl 1 gm/ Sodium 100 mls @ 200 mls/hr 06/21/19 12:00 06/23/19 23:41 Chloride IVPB 100 mls 1200,2359 GORDON Administration Levofloxacin 750 mg/ Device 150 mls @ 100 mls/hr 06/21/19 12:00 06/23/19 12: 02 IVPB 150 mls 1200 GORDON Administration Iron/Minerals/Multivitamins 1 tab 06/24/19 09:00 06/24/19 09:54 Theragran M PO 1 tab DAILY GORDON Administration Levothyroxine Sodium 100 mcg 06/22/19 06:00 06/24/19 05:46 Synthroid PO 100 mcg 0600 GORDON Administration Trazodone HCl 50 mg 06/22/19 21:00 06/23/19 20:39 Desyrel PO 50 mg HS GORDON Administration Venlafaxine HCl 75 mg 06/23/19 21:00 06/24/19 09:57 Effexor PO 75 mg BID GORDON Administration - Exam General Appearance: NAD, awake alert Eye: PERRL, anicteric sclera ENT: normocephalic atraumatic, no oropharyngeal lesions Neck: supple, symmetric, no JVD, no thyromegaly Heart: RRR, no gallops, no rubs, normal peripheral pulses Respiratory - other findings: diminished in bases but clear Gastrointestinal: soft, non-tender, non-distended, normal bowel sounds Extremities: no cyanosis, no clubbing, no edema Skin: normal turgor, no lesions Neurological: cranial nerve grossly intact, no new deficit Musculoskeletal: normal tone, generalized weakness Psychiatric: A&O x 3, flat affect Hosp A/P (1) Acute and chronic respiratory failure with hypoxia Code(s): J96.21 - ACUTE AND CHRONIC RESPIRATORY FAILURE WITH HYPOXIA Status: Acute Plan: Currently on baseline home O2 requirement (2) Community acquired bacterial pneumonia Code(s): J15.9 - UNSPECIFIED BACTERIAL PNEUMONIA Status: Acute Plan: D/C Cefepime, convert Levaquin 250mg po daily (3) COPD exacerbation Code(s): J44.1 - CHRONIC OBSTRUCTIVE PULMONARY DISEASE W (ACUTE) EXACERBATION Status: Acute Plan: D/C Solumedrol, start Prednisone 40mg po daily, continue Duonebs (4) CKD (chronic kidney disease), stage IV Code(s): N18.4 - CHRONIC KIDNEY DISEASE, STAGE 4 (SEVERE) Status: Chronic Plan: Avoid nephrotoxic meds and limit contrast exposure, serial creatinine (5) Atrial fibrillation Code(s): I48.91 - UNSPECIFIED ATRIAL FIBRILLATION Status: Chronic Plan: V-paced - Plan plan discussed w/ family, continue antibiotics, PT/OT, social media assistant, respiratory therapy, out of bed/ambulate, DVT proph w/SCDs Stable currently Continue pulmonary supportive measures Saline lock IVF D/C Solumedrol and start Prednisone 40mg daily D/C Cefepime Convert Levaquin 250mg po daily Chloraseptic spray prn OOB with PT Likely d/c in 48h
[2019-06-24] MEDS ORDERED: predniSONE 20 MG TAB PO SCH (11:45)
[2019-06-24] MEDS: HYDROcodone/Acetaminophen 10/325 mg Tablet PO PRN (15:08)
[2019-06-24] MEDS: Aspirin 81 mg Enteric Coated Tablet PO SCH (21:57)
[2019-06-24] MEDS: traZODone HCl 50 MG TAB PO SCH (21:57)
[2019-06-25] MEDS: Levothyroxine Sodium 100 MCG TAB PO SCH (05:50)
[2019-06-25] MEDS ORDERED: predniSONE 20 MG TAB PO SCH (08:00)
[2019-06-25] MEDS: Multivitamin W/ Minerals 1 TAB PO SCH (08:52)
[2019-06-25] MEDS: HYDROcodone/Acetaminophen 10/325 mg Tablet PO SCH (08:52)
[2019-06-25] MEDS: Amlodipine 5 MG TAB PO SCH (08:52)
[2019-06-25] MEDS: ALPRAZolam 1 MG TAB PO SCH (08:52)
[2019-06-25] MEDS: Famotidine/PF 20 mg/2ml Vial SLOW IVP SCH (08:53)
[2019-06-25] MEDS: Cyanocobalamin (Vitamin B-12) 1,000 MCG TAB PO SCH (08:53)
[2019-06-25 10:29] LABS: #Eosinphils 0.1 thou/uL (0.0-0.7); #Monocytes 1.2 thou/uL (0.11-0.59); %Basophils 0.1 % (0.0-1.0); %Eosinophils 0.4 % (0.0-10.0); %Lymphocytes 6.9 % (21.0-51.0); %Monocytes 8.3 % (0.0-10.0); %Neutrophils 84.3 % (42.0-75.0); Mean Corpuscular HGB CONC 32.6 g/dL (32.0-36.0); Mean Corpuscular Hemoglobin 32.2 pg (27.0-31.0); Mean Corpuscular Volume 98.8 fL (78.0-98.0); Mean Platelet Volume 9.1 fL (7.4-10.4); Platelet Count 210 thou/uL (130-400); RBC Distribution Width 13.8 % (11.5-14.5); Red Blood Cell (RBC) Count 2.79 mill/uL (4.20-5.40); White Blood Cell (WBC) Count 14.3 thou/uL (4.8-10.8)
[2019-06-25 11:23] LABS: Albumin 3.5 g/dL (3.4-4.8); Anion Gap 12 mmol/L (10-20); BUN (Urea Nitrogen) 70 mg/dL (9.8-20.1); BUN/Creatinine Ratio 25.64; Calc. Creatinine Clearance 21 mL/min (70-130); Calcium 8.1 mg/dL (7.8-10.44); Carbon Dioxide 21 mmol/L (23-31); Chloride 111 mmol/L (98-107); Estimated GFR-MDRD 17; Glucose 159 mg/dL (83-110); Phosphorus 5.7 mg/dL (2.3-4.7); Potassium 4.9 mmol/L (3.5-5.1); Sodium 139 mmol/L (136-145)
[2019-06-25 16:46] VITALS: TEMP 97.8
[2019-06-25 16:47] VITALS: BP 128/59
--- NOTE | 2019-06-28 12:20 | DIS ---
DATE OF ADMISSION: 06/20/2019 DATE OF DISCHARGE: 06/25/2019 PRIMARY CARE PHYSICIAN: Coy Williamson MD DISCHARGE DIAGNOSES: 1. Acute respiratory failure with hypoxia. 2. Community-acquired bacterial pneumonia. 3. Chronic obstructive pulmonary disease with acute exacerbation. 4. Anemia of chronic kidney disease. 5. Chronic kidney disease, stage 4. 6. Paroxysmal atrial fibrillation. 7. Hypothyroidism. 8. Hypertension. CONSULTS: Pulmonary and Critical Care. HOSPITAL COURSE: A 74-year-old female with known history of COPD, on home oxygen, CKD, stage 4, amongst others, who was admitted with worsening shortness of breath. The patient was found to have acute on chronic respiratory failure from COPD exacerbation and pneumonia and was treated with antibiotics, steroid, and bronchodilators with improvement. Pulmonary consult was obtained and treatment was optimized. The patient improved and was subsequently discharged home. She was felt to be physically deconditioned, hence home health PT and RN will set up for the patient. Of note, the patient was found to have CKD, stage [address] Whipple previously. The patient was asked to follow up with the patrol lady on discharge. She is also to follow up with Dr. Driver, slots manager in the office. PHYSICAL EXAMINATION: VITAL SIGNS: Temperature 97.8, pulse 97, respiratory rate 18, SpO2 of 94% on 2 L nasal cannula, and blood pressure is 128/59. GENERAL: Obese female, in no obvious distress. Afebrile. Anicteric. Acyanotic. HEENT: Normocephalic, atraumatic. Oral mucosa is moist. CARDIOVASCULAR: Regular rhythm and rate. RESPIRATORY: Fair air entry bilateral with mildly prolonged respiratory phase. No obvious crackle, however, was appreciated. GASTROINTESTINAL: Full, soft, nontender, and nondistended with normal bowel sounds. EXTREMITIES: Grossly normal looking, atraumatic with no edema or erythema. CENTRAL NERVOUS SYSTEM: Conscious and alert oriented x3 with appropriate mental status. Cranial nerves II through XII are grossly intact. The patient moves all extremities but weakly. DISCHARGE CONDITION: Improved. DISCHARGE DISPOSITION: Home with home health. FOLLOWUP: With PCP in 1 week, with Pulmonary in 3 to 4 weeks, with Nephrology of her choice in 1 to 2 weeks. DISCHARGE MEDICATIONS: 1. Albuterol nebulization 3 mL nebulization q.6 p.r.n. 2. Xanax 1 mg p.o. as needed. 3. Amlodipine 2.5 mg p.o. b.i.d. 4. Aspirin 81 mg p.o. daily. 5. Cholecalciferol 1000 units p.o. daily. 6. Cyanocobalamin 5000 mcg p.o. daily. 7. Hydrocodone/acetaminophen 10/325 one tablet p.o. b.i.d. 8. Levothyroxine 100 mcg p.o. daily. 9. Centrum Silver Women one tablet p.o. daily. 10. Trazodone 50 mg p.o. daily at bedtime. 11. Venlafaxine 75 mg p.o. b.i.d. 12. DuoNeb 3 mL q.i.d. 13. Levofloxacin 250 mg p.o. daily for 5 days. 14. MiraLAX 17 g daily p.r.n. TIME SPENT: This discharge took more than 37 minutes. Job ID: [id number]
== END 2019-06-25 17:10 | disposition home health service (06) | DRG 193 ==
LOC: ERS 16:39 → ERHOLD 18:28 → 2NO 06-21 16:31
PROVIDERS: ADMIT Internal Medicine; ATTEND Internal Medicine
DX: J15.9 Unspecified bacterial pneumonia (principal); J96.21 Acute and chronic respiratory failure with hypoxia; I21.A1 Myocardial infarction type 2; J44.1 Chronic obstructive pulmonary disease with (acute) exacerbation; N18.4 Chronic kidney disease, stage 4 (severe); I48.20 Chronic atrial fibrillation, unspecified; E03.9 Hypothyroidism, unspecified; F41.9 Anxiety disorder, unspecified; F17.210 Nicotine dependence, cigarettes, uncomplicated; K59.00 Constipation, unspecified; R35.0 Frequency of micturition; I89.0 Lymphedema, not elsewhere classified; D63.1 Anemia in chronic kidney disease; I12.9 Hypertensive chronic kidney disease with stage 1 through stage 4 chronic kidney disease, or unspecified chronic kidney disease; I48.91 Unspecified atrial fibrillation; Z95.0 Presence of cardiac pacemaker; Z79.01 Long term (current) use of anticoagulants; Z95.5 Presence of coronary angioplasty implant and graft; Z90.49 Acquired absence of other specified parts of digestive tract; Z90.710 Acquired absence of both cervix and uterus; Z98.51 Tubal ligation status
CPT/HCPCS: 36415; 36416; 71045; 71250; 74018; 80048; 80053; 80069; 81003; 81015; 82553; 82805; 83605; 83690; 83880; 84145; 84443; 84484; 85007; 85025; 85027; 87040; 87086; 93005; 94640; 94644; 96365; 96366; 96367; 96375; J0456; J0692; J0696; J1940; J1956; J2920; J2930; J3490; J7512; J7620; S0028